=== PATIENT | female | born 1930 | race Two or more races ===

== ENCOUNTER 2019-08-30 22:15 | Inpatient (IN) | payer OTHER ==
--- NOTE | 2019-08-30 22:19 | PDOC ---
History of Present Illness - General Chief Complaint: Injury Stated Complaint: S/P FALL Time Seen by Provider: 08/30/19 22:17 History Source: Patient Exam Limitations: No Limitations - History of Present Illness Initial Comments: 08/30/19 22:49 This is an 89-year-old female who comes in status post losing her balance while going down a flight of stairs. Patient did not tumble down the stairs however she said she did fall back and kind of bounced down the stairs. Patient grabbed a railing on her way down with her right hand to try to stop her fall. Patient denies hitting her head or passing out. Patient denies any headache. Patient fell approximately 10 hours prior to coming to the ED. Initially patient said she did not have a significant amount of discomfort but as the day progressed she has become more and more uncomfortable. Patient did take some Tylenol for the discomfort. Allergies: as per nursing notes Past Medical History: Hypertension, high cholesterol Social history: Lives with family. No smoking. No alcohol. No illicit drugs. Surgical history: None General: No fevers or chills, no weakness, no weight loss HEENT: No change in vision. No sore throat,. No ear pain CardioVascular: no chest discomfort. No shortness of breath Respiratory:No cough, or wheezing. Gastrointestinal: no nausea, vomiting, diarrhea or constipation, No rectal bleeding Genitourinary: No dysuria, hematuria, or frequency Musculoskeletal: Pain in right shoulder, right elbow neck, left hip, pelvis, femur, knee, ankle on the left Neurologic: No headache, vertigo, dizziness or loss of consciousness Psychiatric: nor depression Skin: No rashes or easy bruising Endocrine: no increased thirst or abnormal weight change Allergic: no skin or latex allergy All other systems reviewed and normal Exam: General: Well-nourished well-developed individual, no acute distress HEENT: Throat: Normal, tonsils normal, no erythema or exudate Neck: Supple, no meningeal signs, no lymphadenopathy, there is some mild tenderness on palpation of the mid cervical spine however more tenderness to the right lateral area of the neck. Eyes::Pupils equal reactive and round, extraocular motion intact Chest: Nontender to palpation Cardiac: S1-S2 normal, regular rate and rhythm, no murmurs rubs or gallops Respiratory: Lungs clear to auscultation bilateral Abdomen: Soft, nondistended, normal bowel sounds, there is no tenderness on palpation diffusely Extremities: Warm, dry, no cyanosis, clubbing, or edema Right shoulder: There is tenderness on palpation with decreased range of motion , there is no swelling ecchymosis or deformity. Left elbow there is tenderness on palpation with decreased range of motion neurovascularly is intact there is no swelling ecchymosis or deformity. Left hip: There is some mild tenderness on palpation with decreased range of motion secondary to pain in the femur and knee neurovascular is intact Left knee: There is some swelling but no ecchymosis. There is diffuse tenderness on palpation of the left knee and distal femur area. There is no obvious deformity. Left ankle: There is tenderness on palpation of the ankle diffusely neurovascular is intact right ankle: There is tenderness on palpation of the right ankle diffusely neurovascular is intact Skin: No rashes Neuro: Alert and oriented x3, CN II - XII intact, nonfocal exam with normal strength, normal sensation, normal reflexes, normal gait, Psych: Normal mood and affect 08/30/19 22:51 Assessment and plan: This is a 89-year-old female who fell approximately 10 hours ago. Patient now comes in complaining of multiple areas that are painful. Patient because of her age well have a CT of her head In addition to that patient will get multiple x-rays of her right elbow, right shoulder, left hip, pelvis left femur, left knee, left ankle, right ankle 08/30/19 23:57 X-rays were reviewed by me and read as negative for everything but the left hip the left hip does show an impacted femoral neck fracture. Past History - Past Medical History Allergies/Adverse Reactions: Allergies Allergy/AdvReac Type Severity Reaction Status Date / Time No Known Allergies Allergy Unverified 08/30/19 22:18 Home Medications: Ambulatory Orders Carvedilol [Coreg -] 3.125 mg PO BID 08/30/19 Cholecalciferol (Vitamin D3) [Vitamin D3] 2,000 unit PO DAILY 08/30/19 Denosumab [Prolia] 60 mg SQ 08/30/19 Nitroglycerin 0.4 mg TL PRN 08/30/19 Pregabalin 25 mg PO DAILY 08/30/19 Simvastatin 10 mg PO DAILY 08/30/19 Ubiquinol [Active-Q] 300 mg PO DAILY 08/30/19 ED Treatment Course - LABORATORY CBC & Chemistry Diagram: 08/31/19 00:01 08/31/19 00:01 Discharge - Discharge Information Problems reviewed: Yes Clinical Impression/Diagnosis: Hip fracture, left Qualifiers: Encounter type: initial encounter Fracture type: closed Qualified Code(s): S72.002A - Fracture of unspecified part of neck of left femur, initial encounter for closed fracture Condition: Fair - Admission Yes - Follow up/Referral - Patient Discharge Instructions - Post Discharge Activity
[2019-08-31 01:02] LABS: BASO % 0.8 % (0-2.0); HEMATOCRIT 42.6 % (32.4-45.2); HEMOGLOBIN 14.3 GM/dL (10.7-15.3); LYMPH % 18.8 % (8-40); MCH 31.8 pg (25.7-33.7); MCHC 33.7 g/dl (32.0-36.0); MEAN CELL VOLUME 94.3 fl (80-96); MEAN PLT VOLUME 9.1 fl (7.5-11.1); MONO % 13.8 % (3.8-10.2); NEUT % 64.6 % (42.8-82.8); PLATELET COUNT 176 K/MM3 (134-434); RBC 4.51 M/mm3 (3.60-5.2); RDW 14.3 % (11.6-15.6); WHITE BLOOD COUNT 6.6 K/mm3 (4.0-10.0)
[2019-08-31 01:30] LABS: ALBUMIN 3.7 g/dl (3.4-5.0); BILIRUBIN,TOTAL 0.5 mg/dL (0.2-1); BLOOD UREA NITROGEN 20.7 mg/dL (7-18); CALCIUM 8.9 mg/dL (8.5-10.1); CREATININE 0.6 mg/dL (0.55-1.3); POTASSIUM 4.2 mmol/L (3.5-5.1); TOT PROT 6.8 g/dl (6.4-8.2)
[2019-08-31 01:44] LABS: EPI CELLS 0.6 /HPF (0-5/HPF); HYALINE CASTS 0 /lpf (0-8); URINE APPEARANCE CLEAR; URINE BACTERIA 2.1 /hpf (NEGATIVE); URINE BILIRUBIN NEGATIVE (NEGATIVE); URINE COLOR YELLOW; URINE GLUCOSE (UA) NEGATIVE (NEGATIVE); URINE KETONE NEGATIVE (NEGATIVE); URINE LEUK ESTERASE TRACE (NEGATIVE); URINE NITRITE NEGATIVE (NEGATIVE); URINE PROTEIN NEGATIVE (NEGATIVE); URINE RBC 1 /hpf (0-4); URINE UROBILINOGEN 0.2 mg/dL (0.2-1.0); URINE WBC 2 /hpf (0-5)
[2019-08-31 01:48] LABS: INR 1.01 (0.83-1.09); PROTHROMBIN TIME (PATIENT) 11.9 SEC (9.7-13.0)
[2019-08-31] MEDS ORDERED: ACETAMINOPHEN 325 MG TABLET (FP) PO PRN (02:08)
[2019-08-31 03:12] VITALS: BMI 25.6
[2019-08-31 07:01] VITALS: TEMP 99.4
[2019-08-31 08:54] LABS: BASO % 0.4 % (0-2.0); EOS % 1.9 % (0-4.5); HEMATOCRIT 39.9 % (32.4-45.2); HEMOGLOBIN 13.2 GM/dl (10.7-15.3); LYMPH % 19.4 % (8-40); MCH 31.9 pg (25.7-33.7); MCHC 33.1 g/dl (32.0-36.0); MEAN CELL VOLUME 96.4 fl (80-96); MONO % 8.8 % (3.8-10.2); NEUT % 69.5 % (42.8-82.8); PLATELET COUNT 169 K/MM3 (134-434); RBC 4.14 M/mm3 (3.60-5.2); RDW 13.1 % (11.6-15.6); WHITE BLOOD COUNT 5.7 K/mm3 (4.0-10.8)
--- NOTE | 2019-08-31 09:00 | HP ---
CHIEF COMPLAINT: Left Knee Pain HISTORY OF PRESENT ILLNESS: 89-year-old female with a PMH of HTN, HLD, cardiomyopathy, Pacemaker, spinal stenosis, presented to the ER status post losing her balance and falling while going down a flight of stairs. Patient states she did fall back and slightly bounced down the stairs. Patient states she grabbed a railing on her way down with her right hand to try to stop her fall. Patient denies hitting her head or passing out. Patient fell approximately 10 hours prior to coming to the ED. Initially patient said she did not have a significant amount of discomfort but as the day progressed she has become more and more uncomfortable. Patient did take some Tylenol for the discomfort. Pt denies CP, SOB, headache, fever, chills , n/v/d. ER course was notable for: (1) Right Hip Pain (2) CXR- unremarkable (3) XRAY: Foot, Elbow, Shoulder, Knee, Femur, Ankle, Hip/Pelvis- All imaging negative for fracture. (4) ABD/Pelvis CT- Negative for fracture Recent Travel: Denies PAST MEDICAL HISTORY: HTN HLD Cardiomyopathy Pacemaker (placed 6 years ago and replaced 1 year ago) Spinal Stenosis (L4/L5) GI Bleed-3 years ago. Origin never found. PAST SURGICAL HISTORY: Pacemaker Right Total Knee replacement Right Hip Fracture (plate and screws) Section x2 Social History: Smoking: Never Alcohol: Approx 4oz of wine a night Drugs: No Lives with Allergies No Known Allergies Allergy (Unverified 08/30/19 22:18) HOME MEDICATIONS: Home Medications Medication Instructions Recorded Carvedilol [Coreg -] 3.125 mg PO BID 08/30/19 Cholecalciferol (Vitamin D3) 2,000 unit PO DAILY 08/30/19 [Vitamin D3] Denosumab [Prolia] 60 mg SQ 08/30/19 Nitroglycerin 0.4 mg TL PRN 08/30/19 Pregabalin 25 mg PO DAILY 08/30/19 Simvastatin 10 mg PO DAILY 08/30/19 Ubiquinol [Active-Q] 300 mg PO DAILY 08/30/19 REVIEW OF SYSTEMS CONSTITUTIONAL: Absent: fever, chills, diaphoresis, generalized weakness, malaise, loss of appetite, weight change HEENT: Absent: rhinorrhea, nasal congestion, throat pain, throat swelling, difficulty swallowing, mouth swelling, ear pain, eye pain, visual changes CARDIOVASCULAR: Absent: chest pain, syncope, palpitations, irregular heart rate, lightheadedness , peripheral edema RESPIRATORY: Absent: cough, shortness of breath, dyspnea with exertion, orthopnea, wheezing, stridor, hemoptysis GASTROINTESTINAL: Absent: abdominal pain, abdominal distension, nausea, vomiting, diarrhea, constipation, melena, hematochezia GENITOURINARY: Absent: dysuria, frequency, urgency, hesitancy, hematuria, flank pain, genital pain MUSCULOSKELETAL: Back Pain-on lyrica Absent: myalgia, arthralgia, joint swelling, neck pain SKIN: Absent: rash, itching, pallor HEMATOLOGIC/IMMUNOLOGIC: Absent: easy bleeding, easy bruising, lymphadenopathy, frequent infections ENDOCRINE: Absent: unexplained weight gain, unexplained weight loss, heat intolerance, cold intolerance NEUROLOGIC: Absent: headache, focal weakness or paresthesias, dizziness, unsteady gait, seizure, mental status changes, bladder or bowel incontinence PSYCHIATRIC: Absent: anxiety, depression, suicidal or homicidal ideation, hallucinations. PHYSICAL EXAMINATION Vital Signs - 24 hr 08/30/19 08/31/19 08/31/19 22:34 02:54 07:00 Temperature 98.8 F 97.9 F 99.4 F Pulse Rate 80 83 86 Respiratory 14 18 18 Rate Blood Pressure 131/70 132/64 93/46 L O2 Sat by Pulse 94 L 95 93 L Oximetry (%) 08/31/19 07:26 Temperature Pulse Rate Respiratory 17 Rate Blood Pressure O2 Sat by Pulse Oximetry (%) GENERAL: Awake, alert, and fully oriented, in no acute distress. HEAD: Normal with no signs of trauma. EYES: Pupils equal, round and reactive to light, extraocular movements intact, sclera anicteric, conjunctiva clear. No lid lag. EARS, NOSE, THROAT: Ears normal, nares patent, oropharynx clear without exudates. Moist mucous membranes. NECK: Normal range of motion, supple without lymphadenopathy, JVD, or masses. LUNGS: Breath sounds equal, clear to auscultation bilaterally. No wheezes, and no crackles. No accessory muscle use. HEART: Regular rate and rhythm, normal S1 and S2 ABDOMEN: Soft, nontender, not distended, normoactive bowel sounds, no guarding, no rebound, no masses. No hepatomegaly or splenomegaly. MUSCULOSKELETAL: Normal range of motion at all joints. No bony deformities or tenderness. No CVA tenderness. UPPER EXTREMITIES: 2+ pulses, warm, well-perfused. No cyanosis. No clubbing. No peripheral edema. LOWER EXTREMITIES: 2+ pulses, warm, well-perfused. No calf tenderness. No peripheral edema. NEUROLOGICAL: Cranial nerves II-XII intact. Normal speech. Gait not observed. PSYCHIATRIC: Cooperative. Good eye contact. Appropriate mood and affect. SKIN: Warm, dry, normal turgor, no rashes or lesions noted, normal capillary refill. Laboratory Results - last 24 hr 08/31/19 08/31/19 08/31/19 00:01 00:01 00:01 WBC 6.6 RBC 4.51 Hgb 14.3 Hct 42.6 MCV 94.3 MCH 31.8 MCHC 33.7 RDW 14.3 Plt Count 176 MPV 9.1 Absolute Neuts (auto) 4.3 Neutrophils % 64.6 Lymphocytes % 18.8 Monocytes % 13.8 H Eosinophils % 2.0 Basophils % 0.8 Nucleated RBC % 0 PT with INR INR Sodium 135 L Potassium 4.2 Chloride 99 Carbon Dioxide 30 Anion Gap 6 L BUN 20.7 H Creatinine 0.6 Est GFR (CKD-EPI)AfAm 93.66 Est GFR (CKD-EPI)NonAf 80.81 Random Glucose 109 H Calcium 8.9 Total Bilirubin 0.5 AST 19 ALT 23 Alkaline Phosphatase 83 Total Protein 6.8 Albumin 3.7 Urine Color Urine Appearance Urine pH Ur Specific [place] Urine Protein Urine Glucose (UA) Urine Ketones Urine Blood Urine Nitrite Urine Bilirubin Urine Urobilinogen Ur Leukocyte Esterase Urine WBC (Auto) Urine RBC (Auto) Urine Casts (Auto) U Epithel Cells (Auto) Urine Bacteria (Auto) Blood Type O POSITIVE Antibody Screen Negative 08/31/19 08/31/19 08/31/19 00:01 01:00 08:40 WBC 5.7 RBC 4.14 Hgb 13.2 Hct 39.9 MCV 96.4 H MCH 31.9 MCHC 33.1 RDW 13.1 Plt Count 169 MPV 9.0 Absolute Neuts (auto) 4.0 Neutrophils % 69.5 Lymphocytes % 19.4 Monocytes % 8.8 Eosinophils % 1.9 Basophils % 0.4 Nucleated RBC % PT with INR 11.90 INR 1.01 Sodium Potassium Chloride Carbon Dioxide Anion Gap BUN Creatinine Est GFR (CKD-EPI)AfAm Est GFR (CKD-EPI)NonAf Random Glucose Calcium Total Bilirubin AST ALT Alkaline Phosphatase Total Protein Albumin Urine Color Yellow Urine Appearance Clear Urine pH 7.0 Ur Specific [place] 1.009 L Urine Protein Negative Urine Glucose (UA) Negative Urine Ketones Negative Urine Blood Negative Urine Nitrite Negative Urine Bilirubin Negative Urine Urobilinogen 0.2 Ur Leukocyte Esterase Trace Urine WBC (Auto) 2 Urine RBC (Auto) 1 Urine Casts (Auto) 0 U Epithel Cells (Auto) 0.6 Urine Bacteria (Auto) 2.1 Blood Type Antibody Screen ASSESSMENT/PLAN: 89-year-old female with a PMH of HTN, HLD, cardiomyopathy, Pacemaker, spinal stenosis, right hip fracture, who presented to the ER with complaints of left knee pain after falling down the stairs. Pt is being treated to rule out Hip fracture S/P Fall at Home -Ortho Consulted -HIP/Pelvis CT HTN/HLD -Continue Hm Dose of Coreg 3.125 PO BID -Statins are being held. PT states her Cardiologis Dr. [place] Duran stopped the medication due to body aches Spinal Stenosis Back Pain -Continue Hm dose of Lyrica 25mg BID FEN -PO Intake -Replete as needed -Regular Diet DVT Prophylaxis -SCDs -OOB- early ambulation Dispo - Discharge Planning, Full Code. Visit type - Emergency Visit Emergency Visit: Yes ED Registration Date: 08/31/19 Care time: The patient presented to the Emergency Department on the above date and was hospitalized for further evaluation of their emergent condition. - New Patient This patient is new to me today: Yes Date on this admission: 09/01/19 - Critical Care Critical Care patient: No
[2019-08-31 09:06] LABS: CREATININE 0.6 mg/dl (0.55-1.3); POTASSIUM 4.1 mmol/L (3.5-5.1)
[2019-08-31] MEDS ORDERED: CARVEDILOL 3.125 MG TABLET (FP) PO SCH (10:00)
[2019-08-31] MEDS ORDERED: HEPARIN NA (PORCINE) 5,000 UNITS/ML 1ML VIAL SQ SCH (10:00)
[2019-08-31] MEDS ORDERED: PREGABALIN 25 MG CAPSULE PO SCH (10:00)
[2019-08-31 10:32] VITALS: BP 104/55; PULSE 93
[2019-08-31 10:48] LABS: CHOLESTEROL 172 mg/dl (50-200); HDL CHOLESTEROL 46 mg/dl (40-60); LDL CHOLESTEROL (ONLY DFH) 108 mg/dl (5-100); TRIGLYCERIDES 92 mg/dl (0-150)
--- NOTE | 2019-08-31 11:25 | EKG ---
Test Reason : Blood Pressure : / mmHG Vent. Rate : 077 BPM Atrial Rate : 077 BPM P-R Int : 130 ms QRS Dur : 142 ms QT Int : 406 ms P-R-T Axes : 064 087 -04 degrees QTc Int : 459 ms Atrial-sensed ventricular-paced rhythm ABNORMAL ECG NO PREVIOUS ECGS AVAILABLE Confirmed by BUNNY TREJO, PAULY ([id number]) on 08/31/2019 11:24:32 AM Referred By: MD ZHANG Confirmed By:PAULY HOLLIS MD
--- NOTE | 2019-08-31 12:30 | DS ---
Physical Exam: SUBJECTIVE: Patient seen and examined OBJECTIVE: Vital Signs Period Temp Pulse Resp BP Sys/Sheriff Pulse Ox Last 24 Hr 97.9 F-99.4 F 80-93 14-18 93-132/46-70 92-95 PHYSICAL EXAM GENERAL: Awake, alert, and fully oriented, in no acute distress. HEAD: Normal with no signs of trauma. EYES: Pupils equal, round and reactive to light, extraocular movements intact, sclera anicteric, conjunctiva clear. No lid lag. EARS, NOSE, THROAT: Ears normal, nares patent, oropharynx clear without exudates. Moist mucous membranes. NECK: Normal range of motion, supple without lymphadenopathy, JVD, or masses. LUNGS: Breath sounds equal, clear to auscultation bilaterally. No wheezes, and no crackles. No accessory muscle use. HEART: Regular rate and rhythm, normal S1 and S2 ABDOMEN: Soft, nontender, not distended, normoactive bowel sounds, no guarding, no rebound, no masses. No hepatomegaly or splenomegaly. MUSCULOSKELETAL: Normal range of motion at all joints. No bony deformities or tenderness. No CVA tenderness. UPPER EXTREMITIES: 2+ pulses, warm, well-perfused. No cyanosis. No clubbing. No peripheral edema. LOWER EXTREMITIES: 2+ pulses, warm, well-perfused. No calf tenderness. No peripheral edema. NEUROLOGICAL: Cranial nerves II-XII intact. Normal speech. Gait not observed. PSYCHIATRIC: Cooperative. Good eye contact. Appropriate mood and affect. SKIN: Warm, dry, normal turgor, no rashes or lesions noted, normal capillary refill. LABS Laboratory Results - last 24 hr 08/31/19 08/31/19 08/31/19 00:01 00:01 00:01 WBC 6.6 RBC 4.51 Hgb 14.3 Hct 42.6 MCV 94.3 MCH 31.8 MCHC 33.7 RDW 14.3 Plt Count 176 MPV 9.1 Absolute Neuts (auto) 4.3 Neutrophils % 64.6 Lymphocytes % 18.8 Monocytes % 13.8 H Eosinophils % 2.0 Basophils % 0.8 Nucleated RBC % 0 PT with INR INR Sodium 135 L Potassium 4.2 Chloride 99 Carbon Dioxide 30 Anion Gap 6 L BUN 20.7 H Creatinine 0.6 Est GFR (CKD-EPI)AfAm 93.66 Est GFR (CKD-EPI)NonAf 80.81 Random Glucose 109 H Calcium 8.9 Total Bilirubin 0.5 AST 19 ALT 23 Alkaline Phosphatase 83 Total Protein 6.8 Albumin 3.7 Triglycerides Cholesterol Total LDL Cholesterol HDL Cholesterol Urine Color Urine Appearance Urine pH Ur Specific [place] Urine Protein Urine Glucose (UA) Urine Ketones Urine Blood Urine Nitrite Urine Bilirubin Urine Urobilinogen Ur Leukocyte Esterase Urine WBC (Auto) Urine RBC (Auto) Urine Casts (Auto) U Epithel Cells (Auto) Urine Bacteria (Auto) Blood Type O POSITIVE Antibody Screen Negative 08/31/19 08/31/19 08/31/19 00:01 01:00 08:40 WBC 5.7 RBC 4.14 Hgb 13.2 Hct 39.9 MCV 96.4 H MCH 31.9 MCHC 33.1 RDW 13.1 Plt Count 169 MPV 9.0 Absolute Neuts (auto) 4.0 Neutrophils % 69.5 Lymphocytes % 19.4 Monocytes % 8.8 Eosinophils % 1.9 Basophils % 0.4 Nucleated RBC % PT with INR 11.90 INR 1.01 Sodium Potassium Chloride Carbon Dioxide Anion Gap BUN Creatinine Est GFR (CKD-EPI)AfAm Est GFR (CKD-EPI)NonAf Random Glucose Calcium Total Bilirubin AST ALT Alkaline Phosphatase Total Protein Albumin Triglycerides Cholesterol Total LDL Cholesterol HDL Cholesterol Urine Color Yellow Urine Appearance Clear Urine pH 7.0 Ur Specific [place] 1.009 L Urine Protein Negative Urine Glucose (UA) Negative Urine Ketones Negative Urine Blood Negative Urine Nitrite Negative Urine Bilirubin Negative Urine Urobilinogen 0.2 Ur Leukocyte Esterase Trace Urine WBC (Auto) 2 Urine RBC (Auto) 1 Urine Casts (Auto) 0 U Epithel Cells (Auto) 0.6 Urine Bacteria (Auto) 2.1 Blood Type Antibody Screen 08/31/19 08/31/19 08:40 10:30 WBC RBC Hgb Hct MCV MCH MCHC RDW Plt Count MPV Absolute Neuts (auto) Neutrophils % Lymphocytes % Monocytes % Eosinophils % Basophils % Nucleated RBC % PT with INR INR Sodium 132 L Potassium 4.1 Chloride 98 Carbon Dioxide 26 Anion Gap 8 BUN 17.0 Creatinine 0.6 Est GFR (CKD-EPI)AfAm 93.66 Est GFR (CKD-EPI)NonAf 80.81 Random Glucose 157 H Calcium 8.0 L Total Bilirubin AST ALT Alkaline Phosphatase Total Protein Albumin Triglycerides 92 Cholesterol 172 Total LDL Cholesterol 108 H HDL Cholesterol 46 Urine Color Urine Appearance Urine pH Ur Specific [place] Urine Protein Urine Glucose (UA) Urine Ketones Urine Blood Urine Nitrite Urine Bilirubin Urine Urobilinogen Ur Leukocyte Esterase Urine WBC (Auto) Urine RBC (Auto) Urine Casts (Auto) U Epithel Cells (Auto) Urine Bacteria (Auto) Blood Type Antibody Screen HOSPITAL COURSE: Date of Admission:08/31/19 Date of Discharge: 08/31/19 89-year-old female with a PMH of HTN, HLD, cardiomyopathy, Pacemaker, spinal stenosis, right hip fracture, who presented to the ER with complaints of left knee pain after falling down the stairs. Pt is being treated to rule out Hip fracture S/P Fall at Home -Ortho Consulted -HIP/Pelvis CT- Negative for fractures HTN/HLD -Continue Hm Dose of Coreg 3.125 PO BID -Statins are being held. PT states her Triage Assistant Dr. [place] Duran stopped the medication due to body aches Spinal Stenosis Back Pain -Continue Hm dose of Lyrica 25mg BID FEN -PO Intake -Replete as needed -Regular Diet DVT Prophylaxis -SCDs -OOB- early ambulation Dispo - Discharge Planning, Full Code. Minutes to complete discharge: 35 Discharge Summary Problems reviewed: Yes Reason For Visit: HIP FRACTURE Current Active Problems Hip fracture, left (Acute) Condition: Good - Instructions Diet, Activity, Other Instructions: Advance activity as tolerated. Advance normal diet as tolerated. OTC Tylenol 650mg every 4-6 hours as needed for pain. Follow up with your Triage Assistant and PCP on Wednesday concerning your hospital visit, and to discuss restarting your statin. Disposition: HOME - Home Medications Comprehensive Discharge Medication List: Ambulatory Orders Carvedilol [Coreg -] 3.125 mg PO BID 08/30/19 Cholecalciferol (Vitamin D3) [Vitamin D3] 2,000 unit PO DAILY 08/30/19 Denosumab [Prolia] 60 mg SQ 08/30/19 Nitroglycerin 0.4 mg TL PRN 08/30/19 Pregabalin 25 mg PO DAILY 08/30/19 Simvastatin 10 mg PO DAILY 08/30/19 Ubiquinol [Active-Q] 300 mg PO DAILY 08/30/19
--- NOTE | 2019-08-31 12:36 | CONSULT ---
Consult - History of Present Illness History of Present Illness: 89y/o female c/o left knee pain after a fall last night down a set of stairs. she states she slipped and her left knee got bent underneath her and she slid down the stairs. She felt ok at first but the pain continued to get worse so she came to the ED. She had x-rays and was found to have a possible left femoral neck fracture and was admitted and a CT was obtained. She is feeling better today after recieving some tylenol. There are no other associated, aggravating or reliving factors. - History Source History Provided By: Patient, Medical Record - Past Medical History ...: No - Alcohol/Substance Use Hx Alcohol Use: No - Smoking History Smoking history: Unknown if ever smoked Have you smoked in the past 12 months: No Aproximately how many cigarettes per day: 0 Home Medications - Allergies Allergies/Adverse Reactions: Allergies Allergy/AdvReac Type Severity Reaction Status Date / Time No Known Allergies Allergy Unverified 08/30/19 22:18 - Home Medications Home Medications: Ambulatory Orders Carvedilol [Coreg -] 3.125 mg PO BID 08/30/19 Cholecalciferol (Vitamin D3) [Vitamin D3] 2,000 unit PO DAILY 08/30/19 Denosumab [Prolia] 60 mg SQ 08/30/19 Nitroglycerin 0.4 mg TL PRN 08/30/19 Pregabalin 25 mg PO DAILY 08/30/19 Simvastatin 10 mg PO DAILY 08/30/19 Ubiquinol [Active-Q] 300 mg PO DAILY 08/30/19 Review of Systems - Review of Systems Constitutional: reports: No Symptoms Eyes: reports: No Symptoms HENT: reports: No Symptoms Neck: reports: No Symptoms Cardiovascular: reports: No Symptoms Respiratory: reports: No Symptoms Gastrointestinal: reports: No Symptoms Genitourinary: reports: No Symptoms Breasts: reports: No Symptoms Reported Musculoskeletal: reports: Extremity Pain, Joint Pain Integumentary: reports: No Symptoms Neurological: reports: No Symptoms Endocrine: reports: No Symptoms Hematology/Lymphatic: reports: No Symptoms Psychiatric: reports: No Symptoms Physical Exam Vital Signs: Vital Signs Temperature 99.4 F 08/31/19 07:00 Pulse Rate 93 H 08/31/19 10:00 Respiratory Rate 17 08/31/19 10:00 Blood Pressure 104/55 L 08/31/19 10:00 O2 Sat by Pulse Oximetry (%) 92 L 08/31/19 10:00 Constitutional: Yes: Well Nourished, No Distress, Calm HENT: Yes: Atraumatic, Normocephalic Extremities: Yes: Other (Left Lower extremity: There is mild edema of the knee and a mild effusion here. There is no erythema or ecchymosis. There is no pain with log roll. She is able to flex and extend the hip without pain. She does have pain with knee flexion and extension. ROM is 0-90deg of the knee. no tenderness along hip, femur, tibia, ankle or foot. mild tenderness along the medial and lateral joint spaces. NVID.) Labs: CBC, BMP 08/31/19 08:40 08/31/19 08:40 Imaging - Results X-ray: Report Reviewed, Image Reviewed (No fractures. Knee arthrosis) Cat Scan: Image Reviewed (No femoral neck fracture. No ramus fracture. Degnerative changes.) Assessment/Plan #1 Left knee sprain s/p fall -I discussed today's findings and treatment options with the patient and son. I have recommended WBAT. Tylenol for pain. She may follow as outpateint regarding her left knee with Dr. Shepard.
[2019-08-31] MEDS ORDERED: ATORVASTATIN CA 10 MG TABLET (FP) PO SCH (22:00)
== END 2019-08-31 13:10 | disposition home or self-care (01) | DRG 563 ==
LOC: FER 22:15 → FM/S 08-31 02:04
PROVIDERS: ADMIT Internal Medicine; ATTEND Nurse Practitioner Acute Care
DX: S83.92XA Sprain of unspecified site of left knee, initial encounter (principal); I42.9 Cardiomyopathy, unspecified; I10 Essential (primary) hypertension; E78.5 Hyperlipidemia, unspecified; M48.00 Spinal stenosis, site unspecified; W19.XXXA Unspecified fall, initial encounter; Y93.9 Activity, unspecified; Y92.89 Other specified places as the place of occurrence of the external cause
CPT/HCPCS: 36415; 70450-TC; 71045-TC-FY; 72125-TC; 73030-TC-RT-FY; 73070-TC-RT-FY; 73523-TC-FY; 73552-TC-LT-FY; 73560-TC-LT-FY; 73610-TC-LT-FY; 73610-TC-RT-FY; 73630-TC-RT-FY; 73700-TC-RT; 74176-TC; 80048; 80053; 80061; 81003; 85025; 85610; 86850; 86900; 86901; 93005; 99284-25